=== PATIENT | female | born 1950 | race Caucasian/White ===

== ENCOUNTER 2017-04-30 08:15 | Day surgery (SDC) | payer MEDICARE, OTHER ==
[~2017-04-30] VITALS: Ht 170.2 cm; Wt 97.1 kg
[~2017-04-30 08:15] MED LIST: AMLODIPINE5 MG PO; ASPIRIN325 MG PO; B-121000 MC1 PO; BENADRYL 25MG C25 MG PO; BUMETANIDE1 MG PO; CLONIDINE0.1 MG PO; CRESTOR10 MG PO; DIOVAN HC2 PO; EC-NAPROSYN500 MG PO; EDARBI80 MG PO; FLUTICASONE50 MCG; FOLIC ACID1 MG PO; FOLIC ACID5 MG/1 ML PO; HYDROXYCHLOR200 MG PO; KLOR-CON M2020 MEQ PO; LEXAPRO20 MG PO; LORTAB 5-325 MG1 TAB PO; METHYLPRED4 MG PO; METOPROL TAR25 MG PO; METOPROLOL SUCC25 MG PO; MILLIPRED5 MG PO; MORPHINE SUL30 M5 PO; OXYBUTYNIN5 MG PO; PERCOCET1 TA4 PO; PHENERGAN25 MG/TAB PO; PREDNISONE5 MG PO; RHEUMATREX2.5 M1 PO; TRAMADOL HCL50 MG PO; VITAMIN D50000 UN1 PO; WELLBUTRIN150 M1 PO; XARELTO15 MG PO; XARELTO20 MG PO; XYZAL5 MG PO; ZOLPIDEM10 M1 PO; ZYRTEC10 MG PO; [UNRECOGNIZED DRUG - OTHER]
[2017-04-30 12:02] VITALS: BP 136/64
== END 2017-04-30 11:30 | disposition home or self-care (01) ==
LOC: ENDO 08:15 → ORM 08:15 → ENDO 11:00
PROVIDERS: ATTEND Surgery
PROC: 0DJD8ZZ Inspection of Lower Intestinal Tract, Via Natural or Artificial Opening Endoscopic (ICD-10-PCS; principal; 2017-04-30)
DX: K62.5 Hemorrhage of anus and rectum (principal); K64.4 Residual hemorrhoidal skin tags; K64.8 Other hemorrhoids; I10 Essential (primary) hypertension; M19.90 Unspecified osteoarthritis, unspecified site; Z86.718 Personal history of other venous thrombosis and embolism

== ENCOUNTER 2017-10-03 14:51 | Emergency (ER) | payer MEDICARE, OTHER ==
[~2017-10-03] VITALS: Ht 170.2 cm; Wt 65.0 kg
[2017-10-03 16:09] LABS: HEMATOCRIT 37.5 % (37.0-47.0); HEMOGLOBIN 12.3 g/dl (12.0-16.0); IMMATURE GRANULOCYTES 0.1 % (0.0-1.0); MEAN CELL VOLUME 90.8 fL CALC (80.0-100.0); MEAN CORPUSCULAR HGB 29.8 pG CALC (26.0-32.0); MEAN CORPUSCULAR HGB CONC 32.8 g/L CALC (32.0-36.0); NEUT# 4.82 thou/uL (2.00-7.15); RED BLOOD COUNT 4.13 mill/uL (4.20-5.60); RED CELL DISTRI WIDTH 13.8 % (11.5-15.5)
[2017-10-03] MEDS ORDERED: METHYLPRED4 MG PO (16:31)
[2017-10-03 16:53] LABS: ANION GAP 18 (6-22 (CALC)); BUN 25 mg/dL (8-23); BUN/CREATININE RATIO 27 (12-20 (CALC)); CALCIUM 10.7 mg/dL (8.4-10.2); CARBON DIOXIDE 25 mmol/l (22-30); CHLORIDE 104 mmol/l (95-108); CREATININE 0.9 mg/dL (0.5-1.0); GFR > 60 ML/MIN (>=60 (CALC)); GFR FOR AFR.AMER. > 60 ML/MIN (>=60 (CALC)); GLUCOSE 83 mg/dL (82-115); POTASSIUM 4.2 mmol/l (3.5-5.1); SODIUM 143 mmol/l (137-146)
[2017-10-03] MEDS ORDERED: CEPHALEXIN500 M1 PO (18:45)
[2017-10-03 19:20] VITALS: BP 162/66
== END 2017-10-03 19:20 | disposition home or self-care (01) ==
LOC: ED 14:51
PROVIDERS: Family Medicine
DX: L03.116 Cellulitis of left lower limb (principal); R22.42 Localized swelling, mass and lump, left lower limb; M79.605 Pain in left leg; Z86.718 Personal history of other venous thrombosis and embolism; Z79.82 Long term (current) use of aspirin
CPT/HCPCS: Q9967

== ENCOUNTER 2017-10-17 14:01 | Inpatient (IN) | payer MEDICARE, OTHER ==
[~2017-10-17] VITALS: Ht 170.2 cm; Wt 91.6 kg
[~2017-10-17 14:01] MED LIST changes: +CEPHALEXIN500 M1 PO; -DIOVAN HC2 PO
[2017-10-17 14:13] VITALS: BP 143/79
[2017-10-17] MEDS ORDERED: LORTAB 5/3255 MG PO (14:54)
--- NOTE | 2017-10-17 15:00 | NUR ---
PT ARRIVED ON UNIT VIA W/C DIRECT ADMIT, ALERT AND ORIENTED X 4, C/O PAIN TO LEFT LEG WHICH IS RED AND SWOLEN AT THIS TIME, ANALGESIC GIVEN AND LEG ELEVATED ON PILLOWS. PT ADVISED TO LIMIT AMBULATION AND BSC PLACED. ORIENTED RO ROOM AND CALL CLAUDIO, WILL CONTINUE TO MONITOR.
[2017-10-17 15:07] LABS: HEMATOCRIT 35.3 % (37.0-47.0); HEMOGLOBIN 11.6 g/dl (12.0-16.0); IMMATURE GRANULOCYTES 0.4 % (0.0-1.0); MEAN CELL VOLUME 90.3 fL CALC (80.0-100.0); MEAN CORPUSCULAR HGB 29.7 pG CALC (26.0-32.0); MEAN CORPUSCULAR HGB CONC 32.9 g/L CALC (32.0-36.0); NEUT# 5.61 thou/uL (2.00-7.15); RED BLOOD COUNT 3.91 mill/uL (4.20-5.60); RED CELL DISTRI WIDTH 13.4 % (11.5-15.5)
[2017-10-17 15:50] LABS: ALBUMIN 4.6 g/dL (3.2-5.0); ALKALINE PHOSPHATASE 67 u/l (38-126); ANION GAP 18 (6-22 (CALC)); BILIRUBIN, TOTAL 0.4 mg/dL (0.0-1.4); BUN 19 mg/dL (8-23); BUN/CREATININE RATIO 20 (12-20 (CALC)); CALCIUM 10.6 mg/dL (8.4-10.2); CARBON DIOXIDE 29 mmol/l (22-30); CHLORIDE 101 mmol/l (95-108); CREATININE 0.9 mg/dL (0.5-1.0); GFR > 60 ML/MIN (>=60 (CALC)); GFR FOR AFR.AMER. > 60 ML/MIN (>=60 (CALC)); GLUCOSE 82 mg/dL (82-115); POTASSIUM 3.9 mmol/l (3.5-5.1); SGOT/AST 36 u/l (9-36); SGPT/ALT 56 u/l (11-66); SODIUM 144 mmol/l (137-146); TOTAL PROTEIN 6.9 g/dL (6.3-8.2)
[2017-10-17] MEDS ORDERED: DIOVAN HC2 PO (16:35)
[2017-10-17] MEDS ORDERED: BACTRIM DS1 TAB PO (16:37)
[2017-10-17 18:51] LABS: ACT PARTIAL THROMBO TIME 23.8 SECONDS (20.0-32.5); PROTHROMBIN TIME 10.7 SECONDS (9.0-12.5)
--- NOTE | 2017-10-17 19:00 | NUR ---
RECEIVED CHANGE OF SHIFT REPORTT FROM JORGE GUTHRIE. PATIENT LYING IN BED AND APPEARS NOT TO BE IN ANY APPARENT ACUTE DISTRESS OR DISCOMFORT. LT LEG RED AND SWOLLEN AND ELEVATED ON PILLOW. PEDAL PULSE PALPABLE BILATERALLY. DENIES PAIN AT THIS TIME. WILL CONTINUE TO MONITOR.
[2017-10-17 19:50] VITALS: BP 116/62
[2017-10-17 22:01] LABS: URINE BILIRUBIN - DIPSTICK NEGATIVE (NEGATIVE); URINE BLOOD DIPSTICK NEGATIVE (NEGATIVE); URINE COLOR YELLOW; URINE GLUCOSE - DIPSTICK NEGATIVE (NEGATIVE); URINE KETONE NEGATIVE (NEGATIVE); URINE LEUK ESTERASE NEGATIVE (Negative); URINE NITRITE - DIPSTICK NEGATIVE (Negative); URINE PH 5.5 (4.5-8.0); URINE PROTEIN - DIPSTICK NEGATIVE (NEG-TRACE); URINE UROBILINOGEN - DIPSTICK 0.2 E.U./dL (0.2)
[2017-10-17 22:10] LABS: URINE CLARITY CLEAR
--- NOTE | 2017-10-18 | NUR ---
PT LYING IN BED QUIETLY AT THIS TIME. NO APPARENT ACUTE DISTRESS NOTED.
--- NOTE | 2017-10-18 04:00 | NUR ---
NO APPARENT ACUTE CHANGES NOTED I PATIENT'S CONDITION.
[2017-10-18 04:25] VITALS: BP 124/75
[2017-10-18 06:49] LABS: PROTHROMBIN TIME 10.9 SECONDS (9.0-12.5)
--- NOTE | 2017-10-18 07:00 | NUR ---
SHIFT CHANGE REPORT FROM CLAU, ROBE SLEEPING, BREATHING EVEN AND NON LABORED, NO SIGN DISCOMFORT, CALL CLAUDIO IN REACH.
[2017-10-18 07:54] VITALS: BP 122/70
[2017-10-18 08:47] VITALS: BP 122/70
--- NOTE | 2017-10-18 09:58 | NUR ---
AWAKE ALERT AND ORIENTED, PAIN CONCERNS ADDRESSED. INQUIRED ABOUT MEDICATIONS AND ADVISED WILL ADDRESS CONCERNS WITH MD YASH, WILL CONTINUE TO MONITOR AND ADDRESS NEEDS.
--- NOTE | 2017-10-18 11:51 | NUR ---
DR. NICO RODRÍGUEZ, PT RELAXING IN BED AND SPOUSE AT BEDSIDE VISITING, PT HAS CONCERNS ABOUT MEDICATIONS WHICH WILL BE ADDRESSED BY MD, WILL CONTINUE TO MONITOR.
[2017-10-18] MEDS ORDERED: WARFARIN SODIUM5 MG PO (12:27)
[2017-10-18] MEDS ORDERED: ENOXAPARIN100 MG/ML SC (12:28)
--- NOTE | 2017-10-18 14:05 | NUR ---
Discharge instructions given. Patient verbalizes understanding of same. Discharged in stable condition via Wheelchair to Home with spouse. All belongings sent with pt.
--- NOTE | 2017-10-18 15:30 | NUR ---
PT LEFT AFTER D/C INSTRUCTIONS REVIEWED, PTS' SPOUSE RETURNED TO INFORM US (STAFF) THAT [facility] HAD MANY QUESTIONS ABOUT LOVENOX PRESCRIPTION THAT NEEDED CLARIFICATIONS. I CALLED THE PHARMACY TO INQUIRE WHAT CLARIFICATIONS WERE NEEDED (SPOKE WITH BILL) AND WAS TOLD. THIS NEEDED PROVIDER'S ATTENTION, THEREFORE I CALLED DR WALSH WHO ADVISED ME TO SPEAK WITH OUR PHARMACIST HERE HE IS AWARE OF THE ORDERS. BRAN IN PHARMACY WAS INFORMED AND WILL ADDRESS SITUATION. PT WAS ADVISED TO RETURN TO [facility] SITUATION WAS BEING ADDRESSED.
== END 2017-10-18 14:05 | disposition home or self-care (01) | DRG 301 ==
LOC: MS2 14:01
PROVIDERS: Nurse Practitioner Family; ADMIT Internal Medicine; ATTEND Internal Medicine
DX: I82.412 Acute embolism and thrombosis of left femoral vein (principal); E78.5 Hyperlipidemia, unspecified; I10 Essential (primary) hypertension; M06.9 Rheumatoid arthritis, unspecified; M19.90 Unspecified osteoarthritis, unspecified site; R73.9 Hyperglycemia, unspecified; Z96.643 Presence of artificial hip joint, bilateral; Z96.653 Presence of artificial knee joint, bilateral; Z87.891 Personal history of nicotine dependence; Z79.82 Long term (current) use of aspirin; Z86.718 Personal history of other venous thrombosis and embolism; R60.0 Localized edema
CPT/HCPCS: J1650

== ENCOUNTER 2018-04-17 11:06 | Inpatient (IN) | payer MEDICARE, OTHER ==
[~2018-04-17] VITALS: Ht 170.2 cm; Wt 94.0 kg
[~2018-04-17 11:06] MED LIST changes: +BACTRIM DS1 TAB PO; +DIOVAN HC2 PO; +ENOXAPARIN100 MG/ML SC; +LORTAB 5/3255 MG PO; +WARFARIN SODIUM5 MG PO
[2018-04-17] MEDS ORDERED: LOVENOX SC (13:37)
[2018-04-17] MEDS ORDERED: RHEUMATREX2.5 M1 PO (13:38)
[2018-04-17] MEDS ORDERED: ELIQUIS5 MG PO (13:40)
[2018-04-20] VITALS (11 sets, daily range): BP systolic 124–166; BP diastolic 69–81
[2018-04-20 10:53] LABS: HEMATOCRIT 35.3 % (37.0-47.0); HEMOGLOBIN 11.6 g/dl (12.0-16.0); IMMATURE GRANULOCYTES 0.4 % (0.0-5.0); MEAN CELL VOLUME 88.7 fL CALC (80.0-100.0); MEAN CORPUSCULAR HGB 29.1 pG CALC (26.0-32.0); MEAN CORPUSCULAR HGB CONC 32.9 g/L CALC (32.0-36.0); NEUT# 3.22 thou/uL (2.00-7.15); RED BLOOD COUNT 3.98 mill/uL (4.20-5.60)
[2018-04-20 11:09] LABS: ACT PARTIAL THROMBO TIME 23.8 SECONDS (20.0-32.5); INTERNATIONAL NORMALIZED RATIO 0.9 RATIO (0.7-1.3); PROTHROMBIN TIME 10.5 SECONDS (9.0-12.5)
[2018-04-20 11:10] LABS: ANION GAP 13 (6-22 (CALC)); BUN 17 mg/dL (8-23); BUN/CREATININE RATIO 20 (12-20 (CALC)); CARBON DIOXIDE 32 mmol/l (22-30); CHLORIDE 102 mmol/l (95-108); CREATININE 0.8 mg/dL (0.5-1.0); GFR > 60 ML/MIN (>=60 (CALC)); GFR FOR AFR.AMER. > 60 ML/MIN (>=60 (CALC)); POTASSIUM 4.2 mmol/l (3.5-5.1); SODIUM 142 mmol/l (137-146)
[2018-04-21 00:21] VITALS: BP 122/65
[2018-04-21 04:17] VITALS: BP 125/73
[2018-04-21 06:15] LABS: HEMATOCRIT 32.4 % (37.0-47.0); HEMOGLOBIN 10.8 g/dl (12.0-16.0)
[2018-04-21 08:00] VITALS: BP 130/71
[2018-04-21 08:40] VITALS: BP 127/68
[2018-04-21] MEDS ORDERED: LORTAB 1010 MG PO (09:08)
== END 2018-04-21 10:10 | DRG 483 ==
LOC: ICU 04-20 08:31 → MS2 04-20 11:30 → ICU 04-21 10:10
PROVIDERS: ADMIT Orthopaedic Surgery; ATTEND Orthopaedic Surgery
PROC: 0RRK00Z Replacement of Left Shoulder Joint with Reverse Ball and Socket Synthetic Substitute, Open Approach (ICD-10-PCS; principal; 2018-04-20)
PROC: 0LS40ZZ Reposition Left Upper Arm Tendon, Open Approach (ICD-10-PCS; 2018-04-20)
PROC: 0RUK0JZ Supplement Left Shoulder Joint with Synthetic Substitute, Open Approach (ICD-10-PCS; 2018-04-20)
PROC: 0LN60ZZ Release Left Lower Arm and Wrist Tendon, Open Approach (ICD-10-PCS; 2018-04-20)
DX: M75.111 Incomplete rotator cuff tear or rupture of right shoulder, not specified as traumatic (principal); M19.012 Primary osteoarthritis, left shoulder; S46.212A Strain of muscle, fascia and tendon of other parts of biceps, left arm, initial encounter; M65.4 Radial styloid tenosynovitis [de Quervain]; M06.9 Rheumatoid arthritis, unspecified; I10 Essential (primary) hypertension; X58.XXXA Exposure to other specified factors, initial encounter; Z86.718 Personal history of other venous thrombosis and embolism; Z79.01 Long term (current) use of anticoagulants; Z87.891 Personal history of nicotine dependence; Z96.653 Presence of artificial knee joint, bilateral; Z96.643 Presence of artificial hip joint, bilateral
CPT/HCPCS: J2710

== ENCOUNTER 2021-04-19 21:25 | Inpatient (IN) | payer MEDICARE, OTHER ==
[~2021-04-19] VITALS: Ht 170.2 cm; Wt 103.0 kg
[~2021-04-19 21:25] MED LIST changes: +ELIQUIS5 MG PO; +LORTAB 1010 MG PO; +LOVENOX SC
[2021-04-19 22:44] LABS: HEMATOCRIT 35.4 % (37.0-47.0); HEMOGLOBIN 11.4 g/dl (12.0-16.0); IMMATURE GRANULOCYTES 0.7 % (0.0-5.0); MEAN CELL VOLUME 90.8 fL CALC (80.0-100.0); MEAN CORPUSCULAR HGB 29.2 pG CALC (26.0-32.0); MEAN CORPUSCULAR HGB CONC 32.2 g/dL CAL (32.0-36.0); NEUT# 23.48 thou/uL (2.00-7.15); RED BLOOD COUNT 3.9 mill/uL (4.20-5.60); RED CELL DISTRI WIDTH 13.2 % (11.5-15.5)
[2021-04-19 22:55] LABS: CREATININE 1.4 mg/dL (0.5-1.0); POTASSIUM 3.9 mmol/l (3.5-5.1)
[2021-04-20 01:32] VITALS: BP 112/56
[2021-04-20 04:00] VITALS: BP 163/68
[2021-04-20 07:45] VITALS: BP 142/66
[2021-04-20] MEDS ORDERED: LABETALOL HYDR300 MG PO ×2 (09:29→09:32)
[2021-04-20] MEDS ORDERED: MICARDIS H80 MG/25 M PO (09:40)
[2021-04-20] MEDS ORDERED: CLONIDINE0.2 MG PO (09:45)
[2021-04-20] MEDS ORDERED: CLONIDINE0.2 MG/21 TOP (10:28)
[2021-04-20] MEDS ORDERED: SOLIFENACIN SUCC5 MG PO (10:29)
[2021-04-20 15:00] VITALS: BP 118/67
[2021-04-20 19:05] VITALS: BP 113/58
[2021-04-21 03:58] VITALS: BP 153/67
[2021-04-21 06:24] LABS: HEMATOCRIT 33.8 % (37.0-47.0); MEAN CELL VOLUME 91.4 fL CALC (80.0-100.0); MEAN CORPUSCULAR HGB 29.7 pG CALC (26.0-32.0); MEAN CORPUSCULAR HGB CONC 32.5 g/dL CAL (32.0-36.0); RED BLOOD COUNT 3.7 mill/uL (4.20-5.60); RED CELL DISTRI WIDTH 13.1 % (11.5-15.5)
[2021-04-21 06:39] LABS: ANION GAP 12 (6-22 (CALC)); BUN 18 mg/dL (8-23); BUN/CREATININE RATIO 23 (12-20 (CALC)); CARBON DIOXIDE 28 mmol/l (22-30); CHLORIDE 103 mmol/l (95-108); CREATININE 0.8 mg/dL (0.5-1.0); GFR > 60 ML/MIN (>=60 (CALC)); GFR FOR AFR.AMER. > 60 ML/MIN (>=60 (CALC)); MAGNESIUM 1.8 mg/dL (1.6-2.3); POTASSIUM 4.2 mmol/l (3.5-5.1); SODIUM 139 mmol/l (137-146)
[2021-04-21 08:00] VITALS: BP 140/70
[2021-04-21 19:02] VITALS: BP 135/68
[2021-04-22 03:57] VITALS: BP 150/77
[2021-04-22 05:45] LABS: HEMATOCRIT 31.6 % (37.0-47.0); MEAN CELL VOLUME 92.7 fL CALC (80.0-100.0); MEAN CORPUSCULAR HGB 29.3 pG CALC (26.0-32.0); MEAN CORPUSCULAR HGB CONC 31.6 g/dL CAL (32.0-36.0); RED BLOOD COUNT 3.41 mill/uL (4.20-5.60); RED CELL DISTRI WIDTH 13.2 % (11.5-15.5)
[2021-04-22 06:01] LABS: ALKALINE PHOSPHATASE 44 u/l (38-126); ANION GAP 12 (6-22 (CALC)); BUN 21 mg/dL (8-23); BUN/CREATININE RATIO 26 (12-20 (CALC)); CARBON DIOXIDE 26 mmol/l (22-30); CHLORIDE 105 mmol/l (95-108); CREATININE 0.8 mg/dL (0.5-1.0); GFR > 60 ML/MIN (>=60 (CALC)); GFR FOR AFR.AMER. > 60 ML/MIN (>=60 (CALC)); POTASSIUM 4.2 mmol/l (3.5-5.1); SGOT/AST 24 u/l (9-36); SODIUM 140 mmol/l (137-146); TOTAL PROTEIN 5.8 g/dL (6.3-8.2)
[2021-04-22 06:03] LABS: ALBUMIN 3.4 g/dL (3.2-5.0); BILIRUBIN, TOTAL 0.2 mg/dL (0.0-1.4)
[2021-04-22 07:45] VITALS: BP 146/72
[2021-04-22 09:05] VITALS: BP 146/72
[2021-04-22] MEDS ORDERED: DOXYCYCL HYC100 MG PO (11:19)
[2021-04-22] MEDS ORDERED: ELIQUIS5 MG PO (11:19)
[2021-04-22 15:29] VITALS: BP 124/68
== END 2021-04-22 14:11 | disposition home or self-care (01) | DRG 603 ==
LOC: ED 21:25 → ED-I 23:41 → ED 23:53 → MS2 23:54
PROVIDERS: Family Medicine; Nurse Practitioner; Nurse Practitioner Family; ADMIT Internal Medicine; ATTEND Internal Medicine
DX: L03.116 Cellulitis of left lower limb (principal); I82.412 Acute embolism and thrombosis of left femoral vein; I82.432 Acute embolism and thrombosis of left popliteal vein; S81.852A Open bite, left lower leg, initial encounter; I10 Essential (primary) hypertension; E78.5 Hyperlipidemia, unspecified; M06.9 Rheumatoid arthritis, unspecified; M19.90 Unspecified osteoarthritis, unspecified site; F41.9 Anxiety disorder, unspecified; F32.9 Major depressive disorder, single episode, unspecified; W55.01XA Bitten by cat, initial encounter; Z86.718 Personal history of other venous thrombosis and embolism; Z79.01 Long term (current) use of anticoagulants; Z96.643 Presence of artificial hip joint, bilateral; Z96.653 Presence of artificial knee joint, bilateral; Z95.820 Peripheral vascular angioplasty status with implants and grafts; Z20.822 Contact with and (suspected) exposure to COVID-19
CPT/HCPCS: Q3014

== ENCOUNTER 2022-02-09 16:59 | Emergency (ER) | payer MEDICARE, OTHER ==
[~2022-02-09] VITALS: Ht 170.2 cm; Wt 103.4 kg
[~2022-02-09 16:59] MED LIST changes: +CLONIDINE0.2 MG PO; +CLONIDINE0.2 MG/21 TOP; +DOXYCYCL HYC100 MG PO; +LABETALOL HYDR300 MG PO; +MICARDIS H80 MG/25 M PO; +SOLIFENACIN SUCC5 MG PO
[2022-02-09 17:12] VITALS: BP 123/53
[2022-02-09 17:31] VITALS: BP 108/55
[2022-02-09 18:01] VITALS: BP 134/67
[2022-02-09] MEDS ORDERED: TYLENOL # 31 TA1 PO (19:53)
== END 2022-02-09 20:04 | disposition home or self-care (01) ==
LOC: ED 16:59
DX: S62.317A Displaced fracture of base of fifth metacarpal bone, left hand, initial encounter for closed fracture (principal); I10 Essential (primary) hypertension; E78.5 Hyperlipidemia, unspecified; M06.9 Rheumatoid arthritis, unspecified; W01.0XXA Fall on same level from slipping, tripping and stumbling without subsequent striking against object, initial encounter; Y93.89 Activity, other specified; Y92.008 Other place in unspecified non-institutional (private) residence as the place of occurrence of the external cause; Z86.718 Personal history of other venous thrombosis and embolism

== ENCOUNTER 2022-07-29 07:07 | Day surgery (SDC) | payer MEDICARE, OTHER ==
[~2022-07-29] VITALS: Ht 170.2 cm; Wt 101.0 kg
[~2022-07-29 07:07] MED LIST changes: +HYDROCODONE BIT10 MG PO; +OMEPRAZOLE DR40 MG PO; +TRAZODONE50 MG PO; +TYLENOL # 31 TA1 PO
[2022-07-29 09:48] VITALS: BP 148/82
== END 2022-07-29 09:45 | disposition home or self-care (01) ==
LOC: ENDO 07:07 → ORM 08:30 → ENDO 08:50 → ORM 09:50 → ENDO 09:50
PROVIDERS: ATTEND Internal Medicine Gastroenterology
PROC: 0DJD8ZZ Inspection of Lower Intestinal Tract, Via Natural or Artificial Opening Endoscopic (ICD-10-PCS; principal; 2022-07-29)
DX: Z12.11 Encounter for screening for malignant neoplasm of colon (principal); Z86.010 Personal history of colon polyps; Z79.01 Long term (current) use of anticoagulants
CPT/HCPCS: G0104

== ENCOUNTER 2022-09-02 09:17 | Day surgery (SDC) | payer MEDICARE, OTHER ==
[~2022-09-02] VITALS: Ht 170.2 cm; Wt 99.3 kg
[2022-09-02 12:11] VITALS: BP 157/66
== END 2022-09-02 12:10 | disposition home or self-care (01) ==
LOC: ENDO 09:17 → ORM 14:00 → ENDO 14:30
PROVIDERS: ATTEND Internal Medicine Gastroenterology
PROC: 0DBK8ZX Excision of Ascending Colon, Via Natural or Artificial Opening Endoscopic, Diagnostic (ICD-10-PCS; principal; 2022-09-02)
PROC: 0DBP8ZX Excision of Rectum, Via Natural or Artificial Opening Endoscopic, Diagnostic (ICD-10-PCS; 2022-09-02)
PROC: 0DBH8ZX Excision of Cecum, Via Natural or Artificial Opening Endoscopic, Diagnostic (ICD-10-PCS; 2022-09-02)
DX: Z12.11 Encounter for screening for malignant neoplasm of colon (principal); D12.2 Benign neoplasm of ascending colon; K63.5 Polyp of colon; K62.1 Rectal polyp; K57.30 Diverticulosis of large intestine without perforation or abscess without bleeding; K64.8 Other hemorrhoids; I10 Essential (primary) hypertension; F41.9 Anxiety disorder, unspecified; M06.9 Rheumatoid arthritis, unspecified; F32.A Depression, unspecified; E78.5 Hyperlipidemia, unspecified; E04.1 Nontoxic single thyroid nodule; Z86.010 Personal history of colon polyps; Z79.01 Long term (current) use of anticoagulants

== ENCOUNTER 2024-04-04 03:36 | Emergency (ER) | payer MEDICARE, OTHER ==
[~2024-04-04] VITALS: Ht 170.2 cm; Wt 82.0 kg
[~2024-04-04 03:36] MED LIST changes: +GUANFACINE2 MG PO; +PERCOCET 5/325M1 TAB PO; +PREDNISONE20 MG PO; +ZOFRAN4 MG/TAB PO
[2024-04-04 03:50] VITALS: BP 111/49
[2024-04-04] MEDS ORDERED: ACETAMINOPHEN 500 MG TAB PO ONE (03:55)
[2024-04-04 04:00] VITALS: BP 101/48
[2024-04-04] MEDS ORDERED: KETOROLAC TROMETHAMINE 30 MG/ML SDV IM ONE (04:00)
[2024-04-04 04:31] VITALS: BP 126/55
[2024-04-04] MEDS ORDERED: TYLENOL # 31 TA1 PO (04:36)
[2024-04-04 04:50] VITALS: BP 126/55
== END 2024-04-04 04:50 | disposition home or self-care (01) ==
LOC: ED 03:36
DX: S52.502A Unspecified fracture of the lower end of left radius, initial encounter for closed fracture (principal); S70.02XA Contusion of left hip, initial encounter; I11.0 Hypertensive heart disease with heart failure; I50.9 Heart failure, unspecified; E78.5 Hyperlipidemia, unspecified; M06.9 Rheumatoid arthritis, unspecified; W01.0XXA Fall on same level from slipping, tripping and stumbling without subsequent striking against object, initial encounter; Y92.009 Unspecified place in unspecified non-institutional (private) residence as the place of occurrence of the external cause; Z86.718 Personal history of other venous thrombosis and embolism; Z96.652 Presence of left artificial knee joint; Z96.643 Presence of artificial hip joint, bilateral

== ENCOUNTER 2024-08-27 15:32 | Emergency (ER) | payer MEDICARE, OTHER ==
[~2024-08-27] VITALS: Ht 167.6 cm; Wt 74.8 kg
[2024-08-27 15:36] VITALS: BP 136/58
[2024-08-27 18:04] VITALS: BP 136/58
== END 2024-08-27 18:09 | disposition home or self-care (01) ==
LOC: ED 15:32
DX: I82.512 Chronic embolism and thrombosis of left femoral vein (principal); I11.0 Hypertensive heart disease with heart failure; I50.9 Heart failure, unspecified; M06.9 Rheumatoid arthritis, unspecified; E78.5 Hyperlipidemia, unspecified; Z79.01 Long term (current) use of anticoagulants

== ENCOUNTER 2024-09-06 15:25 | Inpatient (IN) | payer MEDICARE, OTHER ==
[2024-09-06] VITALS (35 sets, daily range): BP systolic 140–176; BP diastolic 60–145
[~2024-09-06] VITALS: Ht 167.6 cm; Wt 71.9 kg
[2024-09-06 16:27] LABS: BASO% 0.5 % (0-3); EOS% 1.7 % (0-8); HEMATOCRIT 24.3 % (37.0-47.0); HEMOGLOBIN 7.4 g/dl (12.0-16.0); IMMATURE GRANULOCYTES 0.3 % (0.0-5.0); LYMPH% 15.5 % (15-41); MEAN CELL VOLUME 86.8 fL CALC (80.0-100.0); MEAN CORPUSCULAR HGB 26.4 pG CALC (26.0-32.0); MEAN CORPUSCULAR HGB CONC 30.5 g/dL CAL (32.0-36.0); MONO% 9.6 % (2-13); NEUT# 6.69 thou/uL (2.00-7.15); NEUT% 72.4 % (42-76); RED BLOOD COUNT 2.8 mill/uL (4.20-5.60); RED CELL DISTRI WIDTH 17.6 % (11.5-15.5)
[2024-09-06] MEDS ORDERED: cefTRIAXone SODIUM 2 GM in SODIUM CHLORIDE 0.9% 100 ML IV ONE (16:30)
[2024-09-06 16:43] LABS: ALBUMIN 3.5 g/dL (3.2-5.0); BILIRUBIN, TOTAL 0.4 mg/dL (0.02-1.3); CREATININE 0.6 mg/dL (0.5-1.0); POTASSIUM 3.5 mmol/l (3.5-5.1)
[2024-09-06] MEDS ORDERED: AZITHROMYCIN 500 MG in SODIUM CHLORIDE 0.9% 250 ML IV ONE (18:25)
[2024-09-06] MEDS ORDERED: SODIUM CHLORIDE 0.9% 500 ML IV ONE (18:37)
[2024-09-06] MEDS ORDERED: MAGNESIUM HYDROXIDE 30 ML UDC PO PRN (19:15)
[2024-09-06] MEDS ORDERED: HYDROcodone/Acetaminophen 1 COMBO TAB PO PRN (19:15)
[2024-09-06] MEDS ORDERED: ACETAMINOPHEN 325 MG/TAB PO PRN (19:15)
[2024-09-06] MEDS ORDERED: FUROSEMIDE 40 MG/4 ML SDV IV ONE (19:40)
[2024-09-06] MEDS ORDERED: IPRATROPIUM-Albuterol 0.5MG-2.5MG/3 ML NEB ONE (19:40)
[2024-09-06] MEDS ORDERED: methylPREDNISolone SODIUM SUCC 125 MG/2 ML SDV IV ONE (20:05)
[2024-09-06] MEDS ORDERED: APIXABAN BASE 5 MG TAB PO SCH (21:00)
[2024-09-06] MEDS ORDERED: traZODone HCL 50 MG/TAB PO SCH (22:44)
[2024-09-06] MEDS ORDERED: AZITHROMYCIN 500 MG/VIAL SDV IV ONE (22:54)
[2024-09-06] MEDS ORDERED: LABETALOL HCL 100 MG/TAB PO SCH (23:00)
[2024-09-06] MEDS ORDERED: AZITHROMYCIN 500 MG in SODIUM CHLORIDE 0.9% 250 ML IV SCH (23:00)
[2024-09-06] MEDS ORDERED: SODIUM CHLORIDE 0.9% 250 ML IV ONE (23:01)
[2024-09-07] VITALS (39 sets, daily range): BP systolic 130–166; BP diastolic 55–124
[2024-09-07 08:15] LABS: BASO% 0.1 % (0-3); HEMATOCRIT 26.5 % (37.0-47.0); HEMOGLOBIN 8.3 g/dl (12.0-16.0); IMMATURE GRANULOCYTES 0.4 % (0.0-5.0); LYMPH% 6.2 % (15-41); MEAN CELL VOLUME 86.9 fL CALC (80.0-100.0); MEAN CORPUSCULAR HGB 27.2 pG CALC (26.0-32.0); MEAN CORPUSCULAR HGB CONC 31.3 g/dL CAL (32.0-36.0); MONO% 2.6 % (2-13); NEUT# 12.68 thou/uL (2.00-7.15); NEUT% 90.7 % (42-76); RED BLOOD COUNT 3.05 mill/uL (4.20-5.60); RED CELL DISTRI WIDTH 17.1 % (11.5-15.5)
[2024-09-07 08:51] LABS: ALBUMIN 3.3 g/dL (3.2-5.0); BILIRUBIN, TOTAL 0.5 mg/dL (0.02-1.3); CREATININE 0.5 mg/dL (0.5-1.0); POTASSIUM 3.6 mmol/l (3.5-5.1); TOTAL PROTEIN 5.6 g/dL (6.3-8.2)
[2024-09-07] MEDS ORDERED: LABETALOL HCL 100 MG/TAB PO SCH (09:00)
[2024-09-07] MEDS ORDERED: buPROPion HCL 150 MG TAB SR PO SCH (09:00)
[2024-09-07] MEDS ORDERED: ESCITALOPRAM 10 MG/TAB PO SCH (09:00)
[2024-09-07] MEDS ORDERED: PANTOPRAZOLE SODIUM Sesquihydr 40 MG/TAB PO SCH (09:00)
[2024-09-07] MEDS ORDERED: AZITHROMYCIN 500 MG in SODIUM CHLORIDE 0.9% 250 ML IV SCH ×2 (18:00)
[2024-09-07] MEDS ORDERED: IPRATROPIUM-Albuterol 0.5MG-2.5MG/3 ML IN PRN (19:20)
[2024-09-07] MEDS ORDERED: SILVER SULFADIAZINE 400 GM JAR TOP SCH (21:00)
[2024-09-07] MEDS ORDERED: traZODone HCL 50 MG/TAB PO SCH ×2 (21:00→22:15)
[2024-09-07] MEDS ORDERED: AZITHROMYCIN 500 MG in SODIUM CHLORIDE 0.9% 500 ML IV SCH (23:00)
[2024-09-08] VITALS (20 sets, daily range): BP systolic 141–182; BP diastolic 55–93
[2024-09-08 00:23] LABS: BASO% 0.2 % (0-3); EOS% 0.1 % (0-8); HEMATOCRIT 29.5 % (37.0-47.0); HEMOGLOBIN 9.1 g/dl (12.0-16.0); IMMATURE GRANULOCYTES 0.6 % (0.0-5.0); LYMPH% 7.6 % (15-41); MEAN CELL VOLUME 86.8 fL CALC (80.0-100.0); MEAN CORPUSCULAR HGB 26.8 pG CALC (26.0-32.0); MEAN CORPUSCULAR HGB CONC 30.8 g/dL CAL (32.0-36.0); MONO% 8.2 % (2-13); NEUT# 16.54 thou/uL (2.00-7.15); NEUT% 83.3 % (42-76); RED BLOOD COUNT 3.4 mill/uL (4.20-5.60); RED CELL DISTRI WIDTH 17.3 % (11.5-15.5)
[2024-09-08] MEDS ORDERED: PIPERACILLIN Sodium-Tazobactam 3.375 GM in SODIUM CHLORIDE 0.9% 100 ML IV SCH (00:30)
[2024-09-08] MEDS ORDERED: FUROSEMIDE 40 MG/4 ML SDV IV SCH ×2 (01:45→10:00)
[2024-09-08] MEDS ORDERED: hydrALAZINE HCL 20 MG/ML VIAL(1 ML) IV PRN (05:25)
[2024-09-08 05:28] LABS: BASO% 0.1 % (0-3); EOS% 0.1 % (0-8); HEMATOCRIT 29.1 % (37.0-47.0); HEMOGLOBIN 9.2 g/dl (12.0-16.0); IMMATURE GRANULOCYTES 0.8 % (0.0-5.0); LYMPH% 5.1 % (15-41); MEAN CELL VOLUME 86.1 fL CALC (80.0-100.0); MEAN CORPUSCULAR HGB 27.2 pG CALC (26.0-32.0); MEAN CORPUSCULAR HGB CONC 31.6 g/dL CAL (32.0-36.0); MONO% 6.9 % (2-13); NEUT# 16.93 thou/uL (2.00-7.15); RED BLOOD COUNT 3.38 mill/uL (4.20-5.60); RED CELL DISTRI WIDTH 17.5 % (11.5-15.5)
[2024-09-08 05:55] LABS: ALBUMIN 3.5 g/dL (3.2-5.0); BILIRUBIN, TOTAL 0.6 mg/dL (0.02-1.3); CREATININE 0.6 mg/dL (0.5-1.0); MAGNESIUM 1.7 mg/dL (1.6-2.3); POTASSIUM 3.5 mmol/l (3.5-5.1)
[2024-09-08] MEDS ORDERED: methylPREDNISolone Sod Succ 40 MG/ML SDV IV SCH (10:00)
[2024-09-08] MEDS ORDERED: IPRATROPIUM-Albuterol 0.5MG-2.5MG/3 ML IN SCH (15:00)
[2024-09-08] MEDS ORDERED: PIPERACILLIN Sodium-Tazobactam 4.5 GM in SODIUM CHLORIDE 0.9% 100 ML IV SCH (18:00)
[2024-09-09] VITALS (24 sets, daily range): BP systolic 123–190; BP diastolic 68–109
[2024-09-09] MEDS ORDERED: IPRATROPIUM-Albuterol 0.5MG-2.5MG/3 ML ONE (05:29)
[2024-09-09 05:43] LABS: BASO% 0.1 % (0-3); HEMATOCRIT 30.3 % (37.0-47.0); HEMOGLOBIN 9.4 g/dl (12.0-16.0); IMMATURE GRANULOCYTES 0.2 % (0.0-5.0); LYMPH% 3.7 % (15-41); MEAN CELL VOLUME 87.6 fL CALC (80.0-100.0); MEAN CORPUSCULAR HGB 27.2 pG CALC (26.0-32.0); MONO% 2.5 % (2-13); NEUT# 19.94 thou/uL (2.00-7.15); NEUT% 93.5 % (42-76); RED BLOOD COUNT 3.46 mill/uL (4.20-5.60); RED CELL DISTRI WIDTH 17.3 % (11.5-15.5)
[2024-09-09 05:50] LABS: ALBUMIN 3.6 g/dL (3.2-5.0); BILIRUBIN, TOTAL 0.7 mg/dL (0.02-1.3); CREATININE 0.6 mg/dL (0.5-1.0); MAGNESIUM 1.9 mg/dL (1.6-2.3); POTASSIUM 3.2 mmol/l (3.5-5.1); TOTAL PROTEIN 6.5 g/dL (6.3-8.2)
[2024-09-09] MEDS ORDERED: POTASSIUM CHLORIDE 20 MEQ/TAB PO SCH (08:30)
[2024-09-10] VITALS (28 sets, daily range): BP systolic 120–217; BP diastolic 60–182
[2024-09-10 06:14] LABS: URINE BILIRUBIN - DIPSTICK Negative (NEGATIVE); URINE BLOOD DIPSTICK Negative (NEGATIVE); URINE GLUCOSE - DIPSTICK Negative (NEGATIVE); URINE KETONE Negative (NEGATIVE); URINE LEUK ESTERASE Negative (NEGATIVE); URINE NITRITE - DIPSTICK Negative (Negative); URINE PROTEIN - DIPSTICK Trace mg/dL (NEG-TRACE); URINE SPECIFIC GRAVITY 1.015; URINE UROBILINOGEN - DIPSTICK 0.2 E.U./dL (0.2)
[2024-09-10 06:15] LABS: URINE COLOR Yellow
[2024-09-10 08:42] LABS: HEMATOCRIT 31.2 % (37.0-47.0); HEMOGLOBIN 9.7 g/dl (12.0-16.0); IMMATURE GRANULOCYTES 0.8 % (0.0-5.0); LYMPH% 3.8 % (15-41); MEAN CELL VOLUME 86.4 fL CALC (80.0-100.0); MEAN CORPUSCULAR HGB 26.9 pG CALC (26.0-32.0); MEAN CORPUSCULAR HGB CONC 31.1 g/dL CAL (32.0-36.0); MONO% 4.3 % (2-13); NEUT# 23.89 thou/uL (2.00-7.15); NEUT% 91.1 % (42-76); RED BLOOD COUNT 3.61 mill/uL (4.20-5.60); RED CELL DISTRI WIDTH 17.2 % (11.5-15.5)
[2024-09-10 09:11] LABS: CREATININE 0.6 mg/dL (0.5-1.0)
[2024-09-10 09:20] LABS: ALBUMIN 3.8 g/dL (3.2-5.0); BILIRUBIN, TOTAL 0.7 mg/dL (0.02-1.3)
[2024-09-10] MEDS ORDERED: POTASSIUM CHLORIDE 20 MEQ/TAB PO ONE (16:50)
[2024-09-10] MEDS ORDERED: CEFEPIME HYDROCHLORIDE 2 GM in SODIUM CHLORIDE 0.9% 100 ML IV SCH (17:00)
[2024-09-10] MEDS ORDERED: VANCOMYCIN HCL IV ONE (19:00)
[2024-09-10] MEDS ORDERED: SODIUM CHLORIDE 0.9% IV ONE (19:00)
[2024-09-10] MEDS ORDERED: VANCOMYCIN HCL 1 GM/VIAL IV ONE (20:13)
[2024-09-10] MEDS ORDERED: SODIUM CHLORIDE 0.9% 500 ML IV ONE (20:16)
[2024-09-11] VITALS (40 sets, daily range): BP systolic 111–202; BP diastolic 48–121
[2024-09-11 05:09] LABS: ALBUMIN 3.4 g/dL (3.2-5.0); BILIRUBIN, TOTAL 0.6 mg/dL (0.02-1.3); CREATININE 0.6 mg/dL (0.5-1.0); MAGNESIUM 1.8 mg/dL (1.6-2.3); POTASSIUM 3.2 mmol/l (3.5-5.1); TOTAL PROTEIN 6.3 g/dL (6.3-8.2)
[2024-09-11 05:22] LABS: HEMATOCRIT 30.2 % (37.0-47.0); HEMOGLOBIN 9.4 g/dl (12.0-16.0); IMMATURE GRANULOCYTES 1.2 % (0.0-5.0); LYMPH% 3.7 % (15-41); MEAN CELL VOLUME 87.3 fL CALC (80.0-100.0); MEAN CORPUSCULAR HGB 27.2 pG CALC (26.0-32.0); MEAN CORPUSCULAR HGB CONC 31.1 g/dL CAL (32.0-36.0); MONO% 3.8 % (2-13); NEUT# 21.21 thou/uL (2.00-7.15); NEUT% 91.3 % (42-76); RED BLOOD COUNT 3.46 mill/uL (4.20-5.60); RED CELL DISTRI WIDTH 17.3 % (11.5-15.5)
[2024-09-11] MEDS ORDERED: VANCOMYCIN HCL 1 GM in SODIUM CHLORIDE 0.9% 250 ML IV SCH (07:00)
[2024-09-11] MEDS ORDERED: FUROSEMIDE 40 MG/4 ML SDV IV SCH (09:00)
[2024-09-11] MEDS ORDERED: CLARIFY DOSE IV SCH (09:00)
[2024-09-11] MEDS ORDERED: POTASSIUM CHLORIDE 20 MEQ/TAB PO SCH (10:00)
[2024-09-11] MEDS ORDERED: LORazepam 2 MG/ML IV PRN (10:30)
[2024-09-11] MEDS ORDERED: PROPOFOL 100 ML IV ONE (13:24)
[2024-09-11] MEDS ORDERED: SODIUM CHLORIDE 0.9% 1,000 ML IV ONE (13:27)
[2024-09-11] MEDS ORDERED: MIDAZOLAM HCL 2 MG/2 ML VIAL ONE (13:46)
[2024-09-11] MEDS ORDERED: MIDAZOLAM HCL 2 MG/2 ML VIAL IV ONE (14:05)
[2024-09-11] MEDS ORDERED: PROPOFOL 100 ML IV PRN (14:25)
[2024-09-11] MEDS ORDERED: MIDAZOLAM HCL 10 MG in SODIUM CHLORIDE 0.9% 90 ML IV PRN (14:40)
[2024-09-11] MEDS ORDERED: SUCCINYLCHOLINE CHLORIDE 20 MG/ML 10ML VIAL IV SCH ×3 (15:00)
[2024-09-11] MEDS ORDERED: ETOMIDATE 20 MG/10 ML SDV IV SCH ×2 (15:00)
[2024-09-11] MEDS ORDERED: SODIUM CHLORIDE 0.9% IV SCH (20:30)
[2024-09-11] MEDS ORDERED: VANCOMYCIN HCL IV SCH (20:30)
== END 2024-09-11 15:40 | disposition short-term general hospital (02) | DRG 208 ==
LOC: ED 15:25 → ED-I 21:00 → ED 21:20 → ED-I 21:21 → MS2 09-07 08:44 → ICU 09-08 21:50
PROVIDERS: Internal Medicine; Nurse Practitioner; Nurse Practitioner Family; ADMIT Internal Medicine; ATTEND Internal Medicine
PROC: 30233N1 Transfusion of Nonautologous Red Blood Cells into Peripheral Vein, Percutaneous Approach (ICD-10-PCS; principal; 2024-09-06)
PROC: 5A0945A Assistance with Respiratory Ventilation, 24-96 Consecutive Hours, High Flow/Velocity Cannula (ICD-10-PCS; 2024-09-09)
PROC: 5A1935Z Respiratory Ventilation, Less than 24 Consecutive Hours (ICD-10-PCS; 2024-09-11)
PROC: 0BH17EZ Insertion of Endotracheal Airway into Trachea, Via Natural or Artificial Opening (ICD-10-PCS; 2024-09-11)
DX: J18.9 Pneumonia, unspecified organism (principal); J80 Acute respiratory distress syndrome; J44.0 Chronic obstructive pulmonary disease with (acute) lower respiratory infection; J91.8 Pleural effusion in other conditions classified elsewhere; D68.51 Activated protein C resistance; T84.52XA Infection and inflammatory reaction due to internal left hip prosthesis, initial encounter; L02.416 Cutaneous abscess of left lower limb; L03.116 Cellulitis of left lower limb; D64.9 Anemia, unspecified; I11.0 Hypertensive heart disease with heart failure; I50.9 Heart failure, unspecified; E78.5 Hyperlipidemia, unspecified; M06.9 Rheumatoid arthritis, unspecified; F41.9 Anxiety disorder, unspecified; F32.A Depression, unspecified; R74.8 Abnormal levels of other serum enzymes; T84.51XD Infection and inflammatory reaction due to internal right hip prosthesis, subsequent encounter; Y83.1 Surgical operation with implant of artificial internal device as the cause of abnormal reaction of the patient, or of later complication, without mention of misadventure at the time of the procedure; Z96.653 Presence of artificial knee joint, bilateral; Z96.643 Presence of artificial hip joint, bilateral; Z86.718 Personal history of other venous thrombosis and embolism; Z79.01 Long term (current) use of anticoagulants; Z95.820 Peripheral vascular angioplasty status with implants and grafts; Z95.828 Presence of other vascular implants and grafts; M25.50 Pain in unspecified joint; Z79.2 Long term (current) use of antibiotics; Z51.81 Encounter for therapeutic drug level monitoring; M81.0 Age-related osteoporosis without current pathological fracture
CPT/HCPCS: J0360; J0456; J0692; J0696; J1940; J2060; J2543; J2704; J3370; P9016; Q9967